=== PATIENT | male | born 1980 | race Caucasian/White ===

== ENCOUNTER 2021-01-28 12:53 | Emergency (ER) | payer OTHER ==
[~2021-01-28 12:53] MED LIST: IBUPROFEN800 MG PO; NORCO 5-325 TA1 EACH PO
== END 2021-01-28 14:15 | disposition home or self-care (01) ==
LOC: FER 12:53
DX: J02.9 Acute pharyngitis, unspecified (principal)
CPT/HCPCS: 70490

== ENCOUNTER 2021-04-21 18:16 | Emergency (ER) | payer OTHER | END 2021-04-21 20:26 | disposition home or self-care (01) | LOC: FER 18:16 | DX: L72.8 Other follicular cysts of the skin and subcutaneous tissue (principal); F17.210 Nicotine dependence, cigarettes, uncomplicated ==